=== PATIENT | male | born 1980 | race Caucasian/White ===

== ENCOUNTER → 2017-01-07 | Outpatient (CLI) | payer BC ==
[2017-01-07 13:38] LABS: ALBUMIN 4.6 GM/DL (3.2-5.2); ALBUMIN/GLOBULIN RATIO 1.44 (1.00-1.93); ALKALINE PHOSPHATASE 75 U/L (45-117); ALT/SGPT 36 U/L (12-78); ANION GAP 6 MEQ/L (8-16); AST/SGOT 21 U/L (15-37); BILIRUBIN,TOTAL 0.7 MG/DL (0.2-1.0); BLOOD UREA NITROGEN 15 MG/DL (7-18); CALCIUM LEVEL 9.7 MG/DL (8.5-10.1); CARBON DIOXIDE LEVEL 29 MEQ/L (21-32); CHLORIDE LEVEL 102 MEQ/L (98-107); CHOLESTEROL LEVEL 195 MG/DL (<200); CREATININE FOR GFR 0.98 MG/DL (0.70-1.30); GLOMERULAR FILTRATION RATE > 60.0 (>60); GLUCOSE, FASTING 73 MG/DL (70-105); SODIUM LEVEL 137 MEQ/L (136-145); TOTAL PROTEIN 7.8 GM/DL (6.4-8.2); TRIGLYCERIDES LEVEL 114 MG/DL (<150)
[2017-01-07 13:44] LABS: POTASSIUM SERUM 5.6 MEQ/L (3.5-5.1)
== END ==
LOC: M WUC 10:29
PROVIDERS: ATTEND Nurse Practitioner Adult Health
DX: E78.00 Pure hypercholesterolemia, unspecified (principal); E55.9 Vitamin D deficiency, unspecified; Z79.899 Other long term (current) drug therapy

== ENCOUNTER → 2018-09-08 | Outpatient (REF) | payer OTHER ==
[2018-09-08 19:17] LABS: BASO % 0.6 % (0.0-1.0); EOS # 0.1 10^3/uL (0.0-0.50); EOS % 2.1 % (0.0-3.0); HEMATOCRIT 46.8 % (42.0-52.0); HEMOGLOBIN 16.6 g/dl (13.5-17.5); LYMPH % 30.7 % (24.0-44.0); MEAN CORPUSCULAR HEMOGLOBIN 31.6 pg (27.0-33.0); MEAN CORPUSCULAR HGB CONC 35.5 g/dl (32.0-36.5); MONO # 0.4 10^3/uL (0.0-0.8); MONO % 6.6 % (0.0-5.0); NEUTROPHILS % 59.7 % (36.0-66.0); PLATELET COUNT, AUTOMATED 252 10^3/uL (150-450); RED BLOOD COUNT 5.26 10^6/uL (4.30-6.10); WHITE BLOOD COUNT 6.7 10^3/uL (4.0-10.0)
[2018-09-08 19:28] LABS: HEMOGLOBIN A1c 5.5 %
[2018-09-08 19:57] LABS: ALBUMIN 4.6 GM/DL (3.2-5.2); ALT/SGPT 45 U/L (12-78); BILIRUBIN,TOTAL 0.5 MG/DL (0.2-1.0); BLOOD UREA NITROGEN 14 MG/DL (7-18); CALCIUM LEVEL 9.5 MG/DL (8.5-10.1); CARBON DIOXIDE LEVEL 28 MEQ/L (21-32); CHLORIDE LEVEL 105 MEQ/L (98-107); CHOLESTEROL LEVEL 222 MG/DL (<200); CREATININE FOR GFR 1.15 MG/DL (0.70-1.30); FREE T4 0.77 NG/DL (0.76-1.46); GLOMERULAR FILTRATION RATE > 60.0 (>60); GLUCOSE, FASTING 71 MG/DL (70-100); HDL CHOLESTEROL 50 MG/DL (>40); LDL CHOLESTEROL 112 MG/DL (<100); MAGNESIUM LEVEL 2.5 MG/DL (1.8-2.4); NON-HDL-C 172 MG/DL; POTASSIUM SERUM 3.8 MEQ/L (3.5-5.1); SODIUM LEVEL 140 MEQ/L (136-145); TOTAL PROTEIN 7.5 GM/DL (6.4-8.2); TRIGLYCERIDES LEVEL 302 MG/DL (<150)
== END ==
LOC: M SFHCPLAZ 09:55
PROVIDERS: ATTEND Nurse Practitioner Family
DX: I10 Essential (primary) hypertension (principal); E78.5 Hyperlipidemia, unspecified; Z13.228 Encounter for screening for other metabolic disorders

== ENCOUNTER → 2018-09-16 | Outpatient (CLI) | payer OTHER | LOC: M RAD 07:32 | PROVIDERS: ATTEND Nurse Practitioner Family | DX: I10 Essential (primary) hypertension (principal) ==

== ENCOUNTER → 2018-09-17 | Outpatient (CLI) | payer OTHER ==
--- NOTE | 2018-09-17 09:18 | REP ---
RENAL ULTRASOUND WITH DUPLEX DOPPLER EVALUATION OF RENAL ARTERIES: Real-time sonographic evaluation of kidneys performed. The kidneys are normal in size and echotexture, right kidney measuring 1.0 x 5.2 x 4.8 cm and left kidney 12.4 x 6.5 x 5.5 cm. There is no hydronephrosis, renal mass or nephrolithiasis. Real-time ultrasound evaluation and duplex Doppler interrogation of the renal arteries is performed bilaterally. However, extensive bowel gas and body habitus precludes visualization of the abdominal aorta and proximal renal arteries bilaterally. Peak systolic velocity in the distal main right renal artery is 138 cm/s and in the distal main left renal artery is 90 cm/s. Resistive indices are measured in the upper, middle and lower thirds of each kidney. Resistive indices on the right range between 0.59 and 0.67 and acceleration times range between 0.022 and 0.039. Resistive indices of left kidney range between 0.57 and 0.61 and acceleration times range between 0.025 and 0.037. IMPRESSION: Kidneys anatomically appear unremarkable and essentially normal in appearance. Main renal arteries not well evaluated due to overlying bowel gas and patient body habitus. There is no indirect evidence of significant renal artery stenosis. Further evaluation could be made with MRA or CTA. Electronically Signed by Nabor Mello MD 09/17/2018 04:12 P
== END ==
LOC: M RAD 06:43
PROVIDERS: ATTEND Nurse Practitioner Family
DX: I10 Essential (primary) hypertension (principal)

== ENCOUNTER → 2018-10-28 | Outpatient (CLI) | payer BC ==
[~2018-10-28] MED LIST: PROHANCE 279.3MG/ML 15ML VIAL (A9576) As Ordered ONE
--- NOTE | 2018-10-28 10:09 | REP ---
MR angiography of the visceral arteries and abdominal aorta with IV contrast: History: Essential hypertension. Rule out renal artery stenosis. Limited sonographic evaluation of the renal arteries. Contrast enhancement dose: 30 ml of intravenous ProHance. MR angiographic findings: Associated anatomic imaging shows no renal lesion on either side. Normal caliber smoothly suprarenal and infrarenal abdominal aorta. Iliac vessels are unremarkable bilaterally. There are singular non-stenotic renal arteries well seen. No evidence renal artery stenosis. Celiac and superior mesenteric axes are patent. Flow was observed in an unremarkable inferior mesenteric artery. Impression: Normal MR angiography of the renal arteries. No evidence to suggest renal artery stenosis. Electronically Signed by Rodri Suarez MD 10/28/2018 01:59 P
== END ==
LOC: M RAD 08:19
PROVIDERS: ATTEND Nurse Practitioner Family
DX: I10 Essential (primary) hypertension (principal)
CPT/HCPCS: A9576; C8900

== ENCOUNTER → 2019-04-05 | Outpatient (REF) | payer BC ==
[2019-04-05 11:42] LABS: ALBUMIN 4.3 GM/DL (3.2-5.2); ALT/SGPT 57 U/L (12-78); BILIRUBIN,TOTAL 0.5 MG/DL (0.2-1.0); BLOOD UREA NITROGEN 12 MG/DL (7-18); CALCIUM LEVEL 9.7 MG/DL (8.5-10.1); CARBON DIOXIDE LEVEL 30 MEQ/L (21-32); CHLORIDE LEVEL 99 MEQ/L (98-107); CHOLESTEROL LEVEL 225 MG/DL (<200); CREATININE FOR GFR 1.14 MG/DL (0.70-1.30); GLOMERULAR FILTRATION RATE > 60.0 (>60); GLUCOSE, FASTING 107 MG/DL (70-100); HDL CHOLESTEROL 45 MG/DL (>40); LDL CHOLESTEROL 144 MG/DL (<100); NON-HDL-C 180 MG/DL; POTASSIUM SERUM 3.5 MEQ/L (3.5-5.1); SODIUM LEVEL 136 MEQ/L (136-145); TOTAL PROTEIN 7.9 GM/DL (6.4-8.2); TRIGLYCERIDES LEVEL 182 MG/DL (<150)
[2019-04-05 11:58] LABS: HEMOGLOBIN A1c 5.5 %
== END ==
LOC: M SFHCPLAZ 09:54
PROVIDERS: ATTEND Nurse Practitioner Family
DX: I10 Essential (primary) hypertension (principal); E78.5 Hyperlipidemia, unspecified

== ENCOUNTER → 2020-08-24 | Outpatient (CLI) | payer BC ==
[~2020-08-24] MED LIST changes: +ADDE10TA PO; +AMPH1CAP5 PO; +ATEN50TA2 PO; +CHLO125TA PO; +FISH1000 PO; -PROHANCE 279.3MG/ML 15ML VIAL (A9576) As Ordered ONE; +TELM1TAB35 PO; +VITA100066 PO; +VITMTA PO
== END ==
LOC: M LABSMTC 09:47
PROVIDERS: ATTEND Anesthesiology
DX: Z01.812 Encounter for preprocedural laboratory examination (principal); Z20.822 Contact with and (suspected) exposure to COVID-19

== ENCOUNTER 2020-08-29 07:03 | Day surgery (SDC) | payer BC ==
[~2020-08-29] VITALS: Ht 188 cm; Wt 89.8 kg
[~2020-08-29 07:03] MED LIST changes: +BUPIVACAINE HCL 0.5% 30 ML VIAL As Ordered ONE; +LIDOCAINE 1% MDV 20ML VIAL As Ordered ONE; +LR 1,000 ML IV ONE; +ceFAZolin SOD 2 GM in IV 1 EA IV ONE; +dexameTHASONE 4 MG/ML 1ML VIAL (J1100 PER 1MG) As Ordered ONE
[2020-08-29] MEDS ORDERED: propofoL 200 MG/20 ML VIAL As Ordered ONE (09:15)
[2020-08-29] MEDS ORDERED: LIDOCAINE 2% 100MG/5ML SDV (FOR ANES.) As Ordered ONE ×2 (09:15→09:27)
[2020-08-29] MEDS ORDERED: fentaNYL 100 MCG/2 ML INJECTION (J3010) As Ordered ONE (09:15)
[2020-08-29] MEDS ORDERED: KETOROLAC 60MG 2ML VIAL As Ordered ONE (09:15)
[2020-08-29] MEDS ORDERED: ONDANSETRON 4MG/2ML VIAL As Ordered ONE (09:15)
[2020-08-29] MEDS ORDERED: MIDAZOLAM INJ 2MG/2ML VIAL (J2250 PER 1MG) As Ordered ONE (09:15)
[2020-08-29] MEDS ORDERED: dexameTHASONE 4 MG/ML 1ML VIAL (J1100 PER 1MG) As Ordered ONE (09:15)
[2020-08-29] MEDS ORDERED: METOCLOPRAMIDE INJ 10MG/2ML VIAL (J2765 PER 1) As Ordered ONE (09:15)
[2020-08-29] MEDS ORDERED: ACETAMINOPHEN 1000MG 100ML IV BTL (OFIRMEV) (J0131 PER 10MG) As Ordered ONE (09:16)
[2020-08-29] MEDS ORDERED: ePHEDrine SULFATE 25 MG/5 ML(5MG/ML) SYRINGE As Ordered ONE (09:43)
[2020-08-29] MEDS ORDERED: HYDR-3713 PO (10:19)
[2020-08-29 10:40] VITALS: BP 115/64
[2020-08-29] MEDS ORDERED: LR 1,000 ML IV SCH (11:00)
[2020-08-29] MEDS ORDERED: PERCOCET 5MG/325MG TAB PO PRN (11:00)
[2020-08-29] MEDS ORDERED: ONDANSETRON 4MG/2ML VIAL IV PRN (11:00)
--- NOTE | 2020-08-29 15:52 | RO ---
OPERATIVE NOTE DATE OF OPERATION: 08/29/2020 SURGEON: Orlin Hamm DPM PILL MACHINE OPERATOR: None. PREOPERATIVE DIAGNOSIS: Right foot bunion, hallux valgus. POSTOPERATIVE DIAGNOSIS: Right foot bunion, hallux valgus. PROCEDURE: Right foot bunionectomy with first metatarsal osteotomy and Rene osteotomy. ANESTHESIA: Monitored anesthesia care. PREOPERATIVE INJECTION: 20 cc of a one-to-one mixture of 1% lidocaine plain and 0.5% Marcaine plain. ESTIMATED BLOOD LOSS: Minimal. MATERIALS: Arthrex 3.5 headless compression screw and DynaNite staple, 3-0 Vicryl and 4-0 Vicryl, 4-0 nylon. INJECTABLES: 1 cc Decadron 4 mg/mL. COMPLICATIONS: None. CONDITION: Stable. INDICATIONS: Hussein Michael is a 40-year-old male who presented to [facility] with painful bunion to his right foot. He presents today for surgical correction. The patient's side and site were identified and marked in the preoperative area. Consent was reviewed and obtained. All risks, complications, and alternatives to the procedure were explained to the patient in detail and all questions were answered. PROCEDURE: The patient was brought to the operating room and placed on the operating room table in the supine position. Monitored anesthesia care was delivered by the anesthesia team. Preop injection of 20 mL of 1:1 mixture of 1% Lidocaine plain and 0.5% Marcaine plain were injected into the right foot. The right foot was prepped and draped in a normal sterile fashion. A tourniquet was applied to the right ankle and inflated to 225 mmHg. A dorsal median incision was drawn and carried over through with a #15 blade. Dissection was carried down to the first metatarsophalangeal joint capsule. A T-capsulotomy was performed excising the metatarsal head. Next, a lateral release was performed releasing the adductor tendon, lateral capsule, and sesamoidal ligaments. Mcglammary elevator was used to release the plantar structures. Following this, the medial eminence was resected with a sagittal saw. An osteotomy was performed at the metatarsal head and neck transposing it laterally. This was fixated with an Arthrex 3.5 headless compression screw. Medial bone wedge was removed with a sagittal saw and smoothed with a rasp. It was irrigated with normal saline. Next, attention was paid at the proximal phalanx. A wedge of cortex was removed from the medial cortex using the sagittal saw. This was fixated using an Arthrex DynaNite stapler, effectively placing the toe in a more rectus position. The site was irrigated with normal saline. Capsular repair was performed with 3-0 Vicryl. Subcutaneous closure was performed with 4-0 Vicryl. The skin closure was with 4-0 nylon. Then, 1 mL of Decadron was injected. Sterile dressings were applied. The tourniquet was deflated. The patient was brought to the PACU with vital signs stable and neurovascular status intact. He will be partial weight bearing with crutches. He will follow up in the office in two days.
== END 2020-08-29 11:08 | disposition home or self-care (01) ==
LOC: M SDC 07:03
PROVIDERS: ATTEND Podiatrist Foot & Ankle Surgery
DX: M21.611 Bunion of right foot (principal); M20.11 Hallux valgus (acquired), right foot; I10 Essential (primary) hypertension; F90.9 Attention-deficit hyperactivity disorder, unspecified type; Z79.899 Other long term (current) drug therapy
CPT/HCPCS: 28299; 88300; C1713; J0131; J1100; J1885; J2250; J2405; J2765; J3010

== ENCOUNTER → 2020-12-07 | Outpatient (REF) | payer BC ==
[~2020-12-07] MED LIST changes: -BUPIVACAINE HCL 0.5% 30 ML VIAL As Ordered ONE; +HYDR-3713 PO; -LIDOCAINE 1% MDV 20ML VIAL As Ordered ONE; -LR 1,000 ML IV ONE; -ceFAZolin SOD 2 GM in IV 1 EA IV ONE; -dexameTHASONE 4 MG/ML 1ML VIAL (J1100 PER 1MG) As Ordered ONE
[2020-12-07 11:04] LABS: HEMOGLOBIN A1c 4.9 %
[2020-12-07 11:14] LABS: ALBUMIN 4.5 GM/DL (3.2-5.2); ALT/SGPT 27 U/L (12-78); BILIRUBIN,TOTAL 0.6 MG/DL (0.2-1.0); BLOOD UREA NITROGEN 14 MG/DL (7-18); CALCIUM LEVEL 9.8 MG/DL (8.5-10.1); CARBON DIOXIDE LEVEL 32 MEQ/L (21-32); CHLORIDE LEVEL 101 MEQ/L (98-107); CHOLESTEROL LEVEL 185 MG/DL (<200); CHOLESTEROL RISK RATIO 3.627 (<5); CREATININE FOR GFR 1.16 MG/DL (0.70-1.30); GLOMERULAR FILTRATION RATE > 60.0 (>60); GLUCOSE, FASTING 112 MG/DL (70-100); HDL CHOLESTEROL 51 MG/DL (>40); LDL CHOLESTEROL 119 MG/DL (<100); MAGNESIUM LEVEL 2.3 MG/DL (1.8-2.4); NON-HDL-C 134 MG/DL; POTASSIUM SERUM 4.3 MEQ/L (3.5-5.1); SODIUM LEVEL 137 MEQ/L (136-145); TOTAL PROTEIN 7.5 GM/DL (6.4-8.2); TRIGLYCERIDES LEVEL 73 MG/DL (<150)
== END ==
LOC: M SFHCPLAZ 08:11
PROVIDERS: ATTEND Nurse Practitioner Family
DX: E78.5 Hyperlipidemia, unspecified (principal); I10 Essential (primary) hypertension

== ENCOUNTER → 2022-03-13 | Outpatient (REF) | LOC: M LABSMTC 09:24 | PROVIDERS: ATTEND Family Medicine | DX: Z20.822 Contact with and (suspected) exposure to COVID-19 (principal) ==

== ENCOUNTER → 2024-05-19 | Outpatient (REF) | payer BC ==
[2024-05-19 13:59] LABS: ALBUMIN 4.4 G/DL (3.2-5.2); ALKALINE PHOSPHATASE 88 U/L (40-129); ALT/SGPT 44 U/L (7.0-40); AST/SGOT 40 U/L (<34); BILIRUBIN,TOTAL 0.5 MG/DL (0.3-1.2); BLOOD UREA NITROGEN 23 MG/DL (9-23); CALCIUM LEVEL 10.6 MG/DL (8.5-10.1); CARBON DIOXIDE LEVEL 27 MMOL/L (20-31); CHLORIDE LEVEL 101 MMOL/L (98-107); CHOLESTEROL LEVEL 243 MG/DL (<200); CHOLESTEROL RISK RATIO 4.78 (<5); CREATININE FOR GFR 1.02 MG/DL (0.70-1.30); GLOMERULAR FILTRATION RATE > 60.0 (>60); GLUCOSE, FASTING 112 MG/DL (60-100); HDL CHOLESTEROL 50.8 MG/DL (>40); LDL CHOLESTEROL 170.4 MG/DL (<100); NON-HDL-C 192.2 MG/DL; SODIUM LEVEL 136 MMOL/L (136-145); TOTAL PROTEIN 7.4 G/DL (5.7-8.2); TRIGLYCERIDES LEVEL 109 MG/DL (<150)
[2024-05-19 14:00] LABS: THYROID STIMULATING HORMONE 2.321 uIU/ML (0.55-4.78)
[2024-05-19 14:01] LABS: FREE T4 1.13 NG/DL (0.89-1.76)
[2024-05-19 14:02] LABS: BASO # 0.1 10^3/uL (0.0-0.2); BASO % 0.7 % (0.0-1.0); EOS # 0.2 10^3/uL (0.0-0.5); EOS % 2.4 % (0.0-3.0); HEMATOCRIT 46.4 % (42.0-52.0); HEMOGLOBIN 17.1 g/dl (13.5-17.5); LYMPH # 1.6 10^3/uL (1.5-5.0); LYMPH % 23.2 % (24.0-44.0); MEAN CORPUSCULAR HGB CONC 36.9 g/dl (32.0-36.5); MEAN CORPUSCULAR VOLUME 89.6 fl (80.0-96.0); MONO # 0.4 10^3/uL (0.0-0.8); MONO % 6.3 % (2.0-8.0); NEUTROPHILS # 4.5 10^3/uL (1.5-8.5); NEUTROPHILS % 66.7 % (36.0-66.0); PLATELET COUNT, AUTOMATED 304 10^3/uL (150-450); RED BLOOD COUNT 5.18 10^6/uL (4.30-6.10); WHITE BLOOD COUNT 6.7 10^3/uL (4.0-10.0)
[2024-05-19 14:32] LABS: HEMOGLOBIN A1c 5.2 % (4.0-6.0)
== END ==
LOC: M SFHCPLAZ 08:45
PROVIDERS: ATTEND Nurse Practitioner Family
DX: I10 Essential (primary) hypertension (principal); E78.5 Hyperlipidemia, unspecified; R53.83 Other fatigue; R73.01 Impaired fasting glucose